=== PATIENT | female | born 1985 | race Caucasian/White ===

== ENCOUNTER 2018-09-12 13:22 | Emergency (ER) | payer OTHER ==
[2018-09-12 15:06] VITALS: BP 121/74
[2018-09-12 15:48] LABS: PLATELET COUNT 289 10^3/uL (150-400)
[2018-09-12] MEDS ORDERED: DEXAMETHASONE 4 MG TAB PO ONE (15:54)
[2018-09-12] MEDS ORDERED: RANITIDINE 50 MG/2 ML VIAL IVP ONE (15:54)
--- NOTE | 2018-09-12 15:57 | EDPHY ---
H & P Stated Complaint: ct friday with rx to dye/on benadryl today had episode of dizzyness/flas Time Seen by Provider: 09/12/18 15:46 HPI/ROS: CHIEF COMPLAINT: Allergic reaction HISTORY OF PRESENT ILLNESS: The patient is a 33-year-old female who was worked up last week for appendicitis in the outpatient setting. She had a CT scan that was done with contrast on Friday that was negative. On she began to have hives and was started on Benadryl. She has been taking Benadryl for the last 3 days and her symptoms have gradually improved however today she stopped taking Benadryl and after lunch she felt nauseous. She did not vomit. No diarrhea. No difficulty breathing. No more hives. 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 It is now resolved. Severity: Moderate Modifying factors: None REVIEW OF SYSTEMS: Constitutional: denies: chills, fever, recent illness, recent injury EENTM: denies: blurred vision, double vision, nose congestion Respiratory: denies: cough, shortness of breath Cardiac: denies: chest pain, irregular heart rate, lightheadedness, palpitations Gastrointestinal/Abdominal: See HPI Genitourinary: denies: dysuria, frequency, hematuria, pain Musculoskeletal: denies: joint pain, muscle pain Skin: See HPI Neurological: denies: headache, numbness, paresthesia, tingling, dizziness, weakness Hematologic/Lymphatic: denies: blood clots, easy bleeding, easy bruising Immunologic/allergic: denies: HIV/AIDS, transplant 10 systems reviewed and negative except as noted EXAM: GENERAL: Well-appearing, well-nourished and in no acute distress. HEAD: Atraumatic, normocephalic. EYES: Pupils equal round and reactive to light, extraocular movements intact, sclera anicteric, conjunctiva are normal. ENT: TMs normal, nares patent, oropharynx clear without exudates. Moist mucous membranes. NECK: Normal range of motion, supple without lymphadenopathy or JVD. LUNGS: Breath sounds clear to auscultation bilaterally and equal. No wheezes rales or rhonchi. HEART: Regular rate and rhythm without murmurs, rubs or gallops. ABDOMEN: Soft, nontender, normoactive bowel sounds. No guarding, no rebound. No masses appreciated. BACK: No CVA tenderness, no spinal tenderness, step-offs or deformities EXTREMITIES: Normal range of motion, no pitting or edema. No clubbing or cyanosis. NEUROLOGICAL: Cranial nerves II through XII grossly intact. Normal speech, normal gait. 5/5 strength, normal movement in all extremities, normal sensation , normal reflexes PSYCH: Normal mood, normal affect. SKIN: Warm, dry, normal turgor, no visible rashes or lesions. Source: Patient - Personal History LMP (Females 10-55): Over 28 Days Ago Current Tetanus Diphtheria and Acellular Pertussis (TDAP): Yes - Medical/Surgical History Hx Asthma: No Hx Chronic Respiratory Disease: No Hx Diabetes: No Hx Cardiac Disease: No Hx Renal Disease: No Hx Cirrhosis: No Hx Alcoholism: No Hx HIV/AIDS: No Hx Splenectomy or Spleen Trauma: No Other PMH: optical migraines, arm fx - Family History Significant Family History: No pertinent family hx - Social History Smoking Status: Never smoked Alcohol Use: Sober Drug Use: None Constitutional: Initial Vital Signs Temperature (C) 36.3 C 09/12/18 13:37 Heart Rate 92 09/12/18 13:37 Respiratory Rate 17 09/12/18 13:37 Blood Pressure 137/105 H 09/12/18 13:37 O2 Sat (%) 99 09/12/18 13:37 O2 Delivery Mode Room Air Allergies/Adverse Reactions: Sulfa (Sulfonamide Antibiotics) Allergy (Verified 09/12/18 13:35) iv contrast Allergy (Uncoded 09/12/18 13:35) Home Medications: Medication Instructions Recorded Benadryl 09/12/18 Medical Decision Making ED Course/Re-evaluation: 4:30 p.m. the patient is feeling much better. Abdominal exam remains benign. She is fatigued after Benadryl. We discussed titrating off the Benadryl and possibly using Zyrtec or Ngoc as well. She and her family are comfortable with this plan and eager to go home. They declined further workup or testing at this time. Differential Diagnosis: Partial list of the Differential diagnosis considered include but were not limited to; allergic reaction, nausea, dehydration, viral infection and although unlikely based on the history and physical exam, I also considered anaphylaxis, appendicitis, obstruction. I discussed these differential diagnoses and the plan with the patient as well as the usual and expected course. The patient understands that the diagnosis is provisional and that in medicine we are not always correct and that further workup is often warranted. Usual and customary warnings were given. All of the patient's questions were answered. The patient was instructed to return to the emergency department should the symptoms at all worsen or return, otherwise to followup with the physician as we discussed. - Data Points Laboratory Results: Laboratory Results 09/12/18 15:15 09/12/18 15:15 Medications Given: Discontinued Medications Dexamethasone (Decadron) 10 mg PO EDNOW ONE Stop: 09/12/18 15:55 Last Admin: 09/12/18 16:03 Dose: 10 mg Diphenhydramine HCl (Benadryl Injection) 50 mg IVP EDNOW ONE Stop: 09/12/18 15:52 Last Admin: 09/12/18 16:04 Dose: 50 mg Ranitidine HCl (Zantac) 50 mg IVP EDNOW ONE Stop: 09/12/18 15:55 Last Admin: 09/12/18 16:04 Dose: 50 mg Departure - Departure Disposition: Home, Routine, Self-Care Clinical Impression: Nausea Allergic reaction Qualifiers: Encounter type: initial encounter Qualified Code(s): T78.40XA - Allergy, unspecified, initial encounter Condition: Fair Instructions: Acute Nausea and Vomiting (ED), General Allergic Reaction (ED) Referrals: DARSHAN YANCEY [Other] - 2-3 days, if not improved
[2018-09-12] MEDS ORDERED: DEXAMETHASONE 10 MG/ML VIAL ONE (16:01)
== END 2018-09-12 16:50 | disposition home or self-care (01) ==
DX: R11.0 Nausea (principal); T78.40XA Allergy, unspecified, initial encounter
CPT/HCPCS: 96374; J1100; J1200; J2780